=== PATIENT | female | born 1970 | race Caucasian/White ===

== ENCOUNTER → 2017-12-11 14:31 | Outpatient (CLI) | payer MEDICAID | END | disposition home or self-care (01) | LOC: D.MRI 14:31 | DX: R51 Headache (principal) ==

== ENCOUNTER 2018-05-26 22:16 | Emergency (ER) | payer SELFPAY ==
[~2018-05-26] VITALS: Ht 167.6 cm; Wt 77.3 kg
[2018-05-26 22:20] VITALS: Ht 167.6 cm; Wt 77.3 kg
[2018-05-26 22:46] LABS: BASOPHILS 0.4 % (0-2); EOSINOPHILS 1.6 % (0-7); HEMATOCRIT 45.7 % (36.0-48.0); HEMOGLOBIN 16.1 g/dL (12-16); IMMATURE GRANULOCYTES 0.5 % (0-5); LYMPHOCYTES 24.6 % (15-50); MCH 31.9 pg (26.0-34.0); MCHC 35.2 g/dL (31.0-37.0); MCV 90.5 fL (80.0-100.0); MEAN PLATELET VOLUME 11.2 fL (7.4-10.4); MONOCYTES 9.5 % (2-11); NEUTROPHILS 63.4 % (40-80); PLATELET COUNT 279 10x3/uL (130-400); RBC 5.05 10x6/uL (4.00-5.40); RDW 13.3 % (11.5-14.5); WBC 13.9 10x3/uL (4.8-10.8)
[2018-05-26 23:00] LABS: ALKALINE PHOSPHATASE 110 U/L (46-116); ALT (SGPT) 48 U/L (10-68); BILIRUBIN - TOTAL 0.43 mg/dL (0.2-1.3); CALC OSMOLALITY 279 mosm/kg (275-300); CARBON DIOXIDE 26.3 mmol/L (21.0-32.0); CHLORIDE - SERUM 106 mmol/L (98-107); CREATININE - SERUM 0.9 mg/dL (0.6-1.3); GLUCOSE 105 mg/dL (74-106); POTASSIUM - SERUM 3.9 mmol/L (3.5-5.1); PROTEIN - SERUM 7.8 g/dL (6.4-8.2); SODIUM 140 mmol/L (136-145); UREA NITROGEN 15 mg/dL (7-18); eGFR NON AFRICAN AMERICAN 71 mL/min (90-120)
[2018-05-26 23:02] LABS: APPEARANCE CLEAR (CLEAR); BILIRUBIN NEGATIVE (NEGATIVE); COLOR YELLOW (YELLOW); GLUCOSE NEGATIVE (NEGATIVE); KETONE NEGATIVE (NEGATIVE); NITRITE NEGATIVE (NEGATIVE); PROTEIN NEGATIVE (NEGATIVE); UROBILINOGEN NORMAL (NORMAL)
[2018-05-26 23:04] LABS: CREATINE KINASE 81 UL (21-215)
[2018-05-26 23:08] LABS: BACTERIA MODERATE /hpf (NONE SEEN); HYALINE CAST OCC /lpf (NONE SEEN); RED CELLS - URINE OCC /hpf (0-5); UDS - AMPHET NEGATIVE QUAL (NEGATIVE); UDS - BARB NEGATIVE QUAL (NEGATIVE); UDS - BENZO NEGATIVE QUAL (NEGATIVE); UDS - COCAINE NEGATIVE QUAL (NEGATIVE); UDS - OPIATE NEGATIVE QUAL (NEGATIVE); UDS - PCP NEGATIVE QUAL (NEGATIVE); UDS - THC NEGATIVE QUAL (NEGATIVE)
[2018-05-26 23:09] LABS: TROPONIN-I < 0.017 ng/mL (0.000-0.060)
[2018-05-27] MEDS ORDERED: VOLTAREN75 MG PO (01:00)
[2018-05-27] MEDS ORDERED: MECLIZINE HCL25 MG PO (01:00)
[2018-05-27] MEDS ORDERED: FLAGYL500 MG PO (01:00)
[2018-05-27 01:17] VITALS: BP 129/56
== END 2018-05-27 01:18 | disposition home or self-care (01) ==
LOC: D.ER 22:16
PROVIDERS: Family Medicine
DX: R42 Dizziness and giddiness (principal); R53.1 Weakness; M54.2 Cervicalgia; A59.9 Trichomoniasis, unspecified; F17.200 Nicotine dependence, unspecified, uncomplicated

== ENCOUNTER 2019-08-23 09:50 | Emergency (ER) | payer SELFPAY ==
[~2019-08-23] VITALS: Ht 167.6 cm; Wt 65.9 kg
[~2019-08-23 09:50] MED LIST: FLAGYL500 MG PO; MECLIZINE HCL25 MG PO; VOLTAREN75 MG PO
[2019-08-23 10:06] VITALS: Ht 167.6 cm; Wt 65.9 kg
[2019-08-23] MEDS ORDERED: ZANAFLEX4 MG PO (12:43)
[2019-08-23 12:50] VITALS: BP 142/84
== END 2019-08-23 12:50 | disposition home or self-care (01) ==
LOC: D.ER 09:50
DX: M62.830 Muscle spasm of back (principal)